=== PATIENT | female | born 1955 | race Caucasian/White ===

== ENCOUNTER → 2016-10-09 | Outpatient (CLI) | payer MEDICARE ==
[~2016-10-09] MED LIST: ADV250INH INH; ADVI200T PO; ASPI81TA63 PO; CALCTAB37 PO; MULTCAP8 PO; PROA1AER INH; SIMV40TA2 PO; TYLETAB14 PO
--- NOTE | 2016-10-09 11:17 | REP ---
CHEST, TWO VIEWS: HISTORY: Kidney stone. Ill-defined parenchymal densities are present in the left upper and lower lobes. The right lung is clear. The heart is normal in size. The pulmonary vasculature is normal in appearance. The bony structure is intact. IMPRESSION: There are small ill-defined parenchymal densities in the left upper and lower lobes. CT of the chest is recommended for further evaluation. Signed by Aron Dougalss MD 10/09/2016 11:22 A
--- NOTE | 2016-10-09 11:18 | REP ---
KUB, TWO VIEWS: HISTORY: Kidney stone. A small amount of air is present in the small and large intestine. There are no air fluid levels or dilated loops of intestine. There is no pneumoperitoneum. There is no definite nephrolithiasis. IMPRESSION: Nonspecific specific bowel gas pattern. Signed by Aron Douglass MD 10/09/2016 11:23 A
[2016-10-09 14:11] LABS: CALCIUM OXALATE CRYSTALS SMALL
== END ==
LOC: M SMT 09:35
PROVIDERS: ATTEND Nurse Practitioner Women's Health
DX: Z01.818 Encounter for other preprocedural examination (principal); N20.0 Calculus of kidney
CPT/HCPCS: 36415; 71020; 74000; 81001; 87086; G0463

== ENCOUNTER → 2016-11-12 | Day surgery (SDC) | payer MEDICARE ==
[~2016-11-12] VITALS: Ht 152.4 cm; Wt 116.6 kg
[~2016-11-12] MED LIST changes: +ALBUTEROL SULFATE 2.5 MG/0.5 ML INH NEB SOLN As Ordered ONE; +ALBUTEROL SULFATE 2.5 MG/0.5 ML INH NEB SOLN INH ONE; +CONRAY-60 60% 50ML VIAL (Q9961) As Ordered ONE; +LIDOCAINE 2% INJ 100 MG/5 ML SDV (FOR ANES.) As Ordered ONE; +LR 1,000 ML IV ONE; +LR 1,000 ML IV SCH; +METOCLOPRAMIDE INJ 10MG/2ML VIAL (J2765) IV PRN; +MIDAZOLAM INJ 2 MG/2 ML VIAL (J2250) As Ordered ONE; +MORPHINE 2 MG/ML 1ML SYRINGE IV PRN; +ONDANSETRON 4MG/2ML VIAL (J2405) IV PRN; +PERCOCET 5MG/325MG TAB PO PRN; +PROPOFOL 200 MG/20 ML VIAL As Ordered ONE; +fentaNYL 100 MCG/2 ML INJECTION (J3010) As Ordered ONE; +fentaNYL 100 MCG/2 ML INJECTION (J3010) IV PRN; +oxyBUTYnin 5 MG TAB PO PRN
--- NOTE | 2016-11-12 13:42 | REP ---
Retrograde pyelogram: Two views. History: Left ureteral and renal stone. 26 seconds of fluoroscopy time is reported. Findings: A sequence of two fluoroscopically obtained last image hold spot radiographs of the abdomen document double pigtail left ureteral stent placement. Signed by Jarvis Luis MD 11/12/2016 04:40 P
--- NOTE | 2016-11-12 14:14 | RO ---
DATE OF PROCEDURE: 11/12/2016 PREPROCEDURE DIAGNOSIS: Left kidney stones. POSTPROCEDURE DIAGNOSIS: Left kidney stones. PROCEDURE: Cystoscopy, left ureteroscopy with laser lithotripsy and basket extraction of stones, left retrograde pyelogram with intraoperative interpretation of images, left ureteral stent placement. SURGEON: Dr. Anthony Painting COMPETITIVE SHOPPER: None. ANESTHESIA: Spinal. OPERATIVE INDICATIONS: This 61-year-old female was recently found to have left kidney and ureteral stones on CAT scan. She was brought to the operating room today for treatment. DESCRIPTION OF PROCEDURE: The patient was brought to the operating room where spinal anesthesia was administered. Prophylactic antibiotics were infused. She was then placed in dorsal lithotomy position and prepped and draped in the usual sterile fashion. A rigid cystoscope was then inserted into the urethral meatus and advanced to the bladder. Once within the bladder, a wire was advanced up the left collecting system. This wire was then secured to the drape to serve as a safety wire. We then went up the left ureter with a short semi-rigid ureteroscope. No stones were seen anywhere within the ureter. We then removed the short semi-rigid ureteroscope and utilized the wire to advance a ureteral access sheath up into the left collecting system. The wire was then secured to the drape to serve as a safety wire. We then went up the ureteral access sheath with the flexible ureteroscope. The rest of the ureter was examined and no stones were seen. The kidney was then thoroughly examined and we did notice two stones, one within the mid pole calyx and one in the lower pole calyx. Both of these were fragmented into smaller pieces using a 200 micron laser fiber. We removed the larger of these fragments using a basket. The remainder of the stones were fragmented into pieces small enough where they could pass. After this was done, a retrograde pyelogram was performed and was negative for hydronephrosis or extravasation. We then withdrew the ureteroscope along with the ureteral access sheath and once again no stones were seen within the ureter. I then utilized the previously placed wire to advance a 6 Japanese x 22-32 cm JJ ureteral stent up into the left collecting system. The wire was then removed and there were adequate curls of the stent in the left renal pelvis and in the bladder. The bladder was then emptied of all fluid and this marked the conclusion of the procedure. The patient was then taken out of the dorsal lithotomy position, awakened from anesthesia and transported to the recovery room in stable condition. Estimated blood loss: 0 mL. Complications: None. Specimen: Kidney stone fragments. Plan: The patient will followup in the clinic in a few weeks for stent removal. [email or web address]
[2016-11-12 16:06] VITALS: BP 124/60
== END | disposition home or self-care (01) ==
LOC: M SDC 08:48
PROVIDERS: ATTEND Urology
DX: N20.0 Calculus of kidney (principal); J44.9 Chronic obstructive pulmonary disease, unspecified; J45.909 Unspecified asthma, uncomplicated; E78.5 Hyperlipidemia, unspecified; N18.3 Chronic kidney disease, stage 3 (moderate); F32.9 Major depressive disorder, single episode, unspecified; K21.9 Gastro-esophageal reflux disease without esophagitis; G47.33 Obstructive sleep apnea (adult) (pediatric); E03.9 Hypothyroidism, unspecified; M19.90 Unspecified osteoarthritis, unspecified site; F41.9 Anxiety disorder, unspecified; Z87.891 Personal history of nicotine dependence; Z79.899 Other long term (current) drug therapy; Z79.82 Long term (current) use of aspirin; Z79.51 Long term (current) use of inhaled steroids
CPT/HCPCS: 52356; 74420; 82360; 88300; C1894; C2617; J0690; J2250; J3010; Q9961